=== PATIENT | male | born 1975 | race Caucasian/White ===

== ENCOUNTER 2018-08-19 19:24 | Inpatient (IN) | payer SELFPAY, OTHER, MEDICAID ==
[2018-08-19 20:27] LABS: HEMATOCRIT 44.1 % (42.0-52.0); HEMOGLOBIN 14.8 g/dl (13.5-17.5); MEAN CORPUSCULAR HEMOGLOBIN 30.8 pg (27.0-33.0); MEAN CORPUSCULAR HGB CONC 33.6 g/dl (32.0-36.5); MEAN CORPUSCULAR VOLUME 91.9 fl (80.0-96.0); PLATELET COUNT, AUTOMATED 206 10^3/uL (150-450); RED CELL DISTRIBUTION WIDTH 12.3 % (11.5-14.5); WHITE BLOOD COUNT 7.2 10^3/uL (4.0-10.0)
[2018-08-19 20:50] LABS: AMPHETAMINES LEVEL URINE NEGATIVE (NEGATIVE); BARBITURATES URINE NEGATIVE (NEGATIVE); BENZODIAZEPINES URINE NEGATIVE (NEGATIVE); CANNABINOIDS URINE POSITIVE (NEGATIVE); COCAINE METABOLITE URINE NEGATIVE (NEGATIVE); METHADONE URINE NEGATIVE (NEGATIVE); OPIATES URINE NEGATIVE (NEGATIVE); PHENCYCLIDINE URINE NEGATIVE (NEGATIVE)
[2018-08-19 21:00] LABS: ACETAMINOPHEN LEVEL < 2.0 UG/ML (10.0-30.0); ALBUMIN/GLOBULIN RATIO 1.25 (1.00-1.93); ALKALINE PHOSPHATASE 54 U/L (45-117); ALT/SGPT 23 U/L (12-78); ANION GAP 10 MEQ/L (8-16); AST/SGOT 15 U/L (7-37); BILIRUBIN,DIRECT 0.1 MG/DL (0.0-0.2); BILIRUBIN,TOTAL 0.4 MG/DL (0.2-1.0); BLOOD UREA NITROGEN 9 MG/DL (7-18); CALCIUM LEVEL 8.5 MG/DL (8.5-10.1); CARBON DIOXIDE LEVEL 26 MEQ/L (21-32); CHLORIDE LEVEL 108 MEQ/L (98-107); CREATININE FOR GFR 0.79 MG/DL (0.70-1.30); ETHYL ALCOHOL (ETHANOL) 0.065 % (0.000-0.010); GLOMERULAR FILTRATION RATE > 60.0 (>60); GLUCOSE, FASTING 81 MG/DL (70-100); POTASSIUM SERUM 3.3 MEQ/L (3.5-5.1); SALICYLATE LEVEL 3.1 MG/DL (5.0-30.0); SODIUM LEVEL 144 MEQ/L (136-145); TOTAL PROTEIN 7.2 GM/DL (6.4-8.2)
[2018-08-19] MEDS ORDERED: MAALOX 30 ML SUSP *UDC PO (22:00)
[2018-08-19] MEDS ORDERED: traZODone 50 MG TAB PO (22:00)
[2018-08-19] MEDS ORDERED: MOM 30ML SUSPENSION UDC PO (22:00)
[2018-08-19] MEDS: POTASSIUM CHLORIDE 10 MEQ SR TABLET PO (22:00)
[2018-08-20] MEDS: THIAMINE 100 MG TAB PO (11:42)
[2018-08-20] MEDS: MULTIVITAMINS/MINERALS THERAP 1 TAB PO (11:42)
[2018-08-20] MEDS: FOLIC ACID 1 MG TAB PO (11:42)
[2018-08-20] MEDS: SERTRALINE HCL 50 MG TAB PO (13:10)
[2018-08-20] MEDS: NICOTINE 21MG/24HR 1 EA TRANSDERMAL TD (13:10)
[2018-08-20] MEDS: ACETAMINOPHEN TAB 650MG DOSE (2X325MG) PO (20:49)
[2018-08-20] MEDS ORDERED: THIAMINE 100 MG TAB PO (21:00)
[2018-08-21] MEDS: THIAMINE 100 MG TAB PO (08:05)
[2018-08-21] MEDS: SERTRALINE HCL 50 MG TAB PO (08:05)
[2018-08-21] MEDS: FOLIC ACID 1 MG TAB PO (08:05)
[2018-08-21] MEDS: MULTIVITAMINS/MINERALS THERAP 1 TAB PO (08:05)
[2018-08-21] MEDS: NICOTINE 21MG/24HR 1 EA TRANSDERMAL TD (08:06)
[2018-08-21 08:52] LABS: ANION GAP 6 MEQ/L (8-16); BLOOD UREA NITROGEN 13 MG/DL (7-18); CALCIUM LEVEL 9.3 MG/DL (8.5-10.1); CARBON DIOXIDE LEVEL 31 MEQ/L (21-32); CHLORIDE LEVEL 106 MEQ/L (98-107); CREATININE FOR GFR 0.95 MG/DL (0.70-1.30); GLOMERULAR FILTRATION RATE > 60.0 (>60); GLUCOSE, FASTING 103 MG/DL (70-100); POTASSIUM SERUM 4.3 MEQ/L (3.5-5.1); SODIUM LEVEL 143 MEQ/L (136-145)
[2018-08-21] MEDS ORDERED: MULTIVITAMINS/MINERALS THERAP 1 TAB PO (09:00)
[2018-08-21] MEDS ORDERED: FOLIC ACID 1 MG TAB PO (09:00)
[2018-08-21] MEDS: hydrOXYzine 50 MG TAB PO (12:01)
[2018-08-21] MEDS: ONDANSETRON 4 MG ORAL DISINTEGRATING TAB (Q0162 PER 1MG) PO (12:02)
[2018-08-21] MEDS: LORazepam 2 MG TAB PO (12:53)
[2018-08-22] MEDS: FOLIC ACID 1 MG TAB PO (08:31)
[2018-08-22] MEDS: SERTRALINE HCL 50 MG TAB PO (08:31)
[2018-08-22] MEDS: NICOTINE 21MG/24HR 1 EA TRANSDERMAL TD (08:31)
[2018-08-22] MEDS: MULTIVITAMINS/MINERALS THERAP 1 TAB PO (08:31)
[2018-08-22] MEDS: THIAMINE 100 MG TAB PO (08:31)
[2018-08-22] MEDS: ACETAMINOPHEN TAB 650MG DOSE (2X325MG) PO (12:51)
[2018-08-22] MEDS: hydrOXYzine 50 MG TAB PO (14:49)
[2018-08-22] MEDS: LORazepam 2 MG TAB PO (17:01)
[2018-08-23] MEDS: MULTIVITAMINS/MINERALS THERAP 1 TAB PO (09:51)
[2018-08-23] MEDS: FOLIC ACID 1 MG TAB PO (09:51)
[2018-08-23] MEDS: THIAMINE 100 MG TAB PO (09:51)
[2018-08-23] MEDS: NICOTINE 21MG/24HR 1 EA TRANSDERMAL TD (09:51)
[2018-08-23] MEDS: SERTRALINE HCL 50 MG TAB PO (09:51)
[2018-08-23] MEDS: hydrOXYzine 50 MG TAB PO (11:50)
[2018-08-24] MEDS: FOLIC ACID 1 MG TAB PO (08:08)
[2018-08-24] MEDS: THIAMINE 100 MG TAB PO (08:08)
[2018-08-24] MEDS: SERTRALINE HCL 25 MG TABLET PO (08:08)
[2018-08-24] MEDS: MULTIVITAMINS/MINERALS THERAP 1 TAB PO (08:08)
[2018-08-24] MEDS: NICOTINE 21MG/24HR 1 EA TRANSDERMAL TD (08:09)
[2018-08-25] MEDS: NICOTINE 21MG/24HR 1 EA TRANSDERMAL TD (09:00)
[2018-08-25] MEDS: MULTIVITAMINS/MINERALS THERAP 1 TAB PO (09:05)
[2018-08-25] MEDS: THIAMINE 100 MG TAB PO (09:05)
[2018-08-25] MEDS: FOLIC ACID 1 MG TAB PO (09:05)
[2018-08-25] MEDS: SERTRALINE 100 MG TAB PO (09:05)
== END 2018-08-25 13:30 | disposition home or self-care (01) | DRG 754 ==
LOC: M PSY 08-21 13:53 → M ED 19:24 → M ED INP 21:54 → M PSY 22:43
DX: F32.9 Major depressive disorder, single episode, unspecified (principal); R45.851 Suicidal ideations; F41.1 Generalized anxiety disorder; F10.10 Alcohol abuse, uncomplicated; F11.10 Opioid abuse, uncomplicated; F17.210 Nicotine dependence, cigarettes, uncomplicated; E87.6 Hypokalemia

== ENCOUNTER 2018-12-24 13:35 | Inpatient (IN) | payer MEDICAID, OTHER, SELFPAY ==
[~2018-12-24] VITALS: Ht 185.4 cm; Wt 85.7 kg
[~2018-12-24 13:35] MED LIST: SERT-138 PO
[2018-12-24 15:02] LABS: HEMATOCRIT 45.3 % (42.0-52.0); HEMOGLOBIN 14.8 g/dl (13.5-17.5); MEAN CORPUSCULAR HEMOGLOBIN 30.6 pg (27.0-33.0); MEAN CORPUSCULAR HGB CONC 32.7 g/dl (32.0-36.5); MEAN CORPUSCULAR VOLUME 93.6 fl (80.0-96.0); PLATELET COUNT, AUTOMATED 205 10^3/uL (150-450); RED BLOOD COUNT 4.84 10^6/uL (4.30-6.10); WHITE BLOOD COUNT 6.6 10^3/uL (4.0-10.0)
[2018-12-24 15:30] LABS: ACETAMINOPHEN LEVEL < 2.0 UG/ML (10.0-30.0); ALT/SGPT 19 U/L (12-78); BILIRUBIN,DIRECT 0.2 MG/DL (0.0-0.2); BILIRUBIN,TOTAL 0.5 MG/DL (0.2-1.0); BLOOD UREA NITROGEN 11 MG/DL (7-18); CALCIUM LEVEL 8.3 MG/DL (8.5-10.1); CARBON DIOXIDE LEVEL 33 MEQ/L (21-32); CHLORIDE LEVEL 107 MEQ/L (98-107); CREATININE FOR GFR 0.85 MG/DL (0.70-1.30); ETHYL ALCOHOL (ETHANOL) 0.005 % (0.000-0.010); GLOMERULAR FILTRATION RATE > 60.0 (>60); GLUCOSE, FASTING 96 MG/DL (70-100); POTASSIUM SERUM 4.4 MEQ/L (3.5-5.1); SALICYLATE LEVEL 4.4 MG/DL (5.0-30.0); SODIUM LEVEL 141 MEQ/L (136-145); THYROID STIMULATING HORMONE 0.681 uIU/ML (0.358-3.740); TOTAL PROTEIN 6.8 GM/DL (6.4-8.2)
[2018-12-24 16:31] LABS: AMPHETAMINES LEVEL URINE NEGATIVE (NEGATIVE); BARBITURATES URINE NEGATIVE (NEGATIVE); BENZODIAZEPINES URINE NEGATIVE (NEGATIVE); CANNABINOIDS URINE POSITIVE (NEGATIVE); COCAINE METABOLITE URINE NEGATIVE (NEGATIVE); METHADONE URINE NEGATIVE (NEGATIVE); OPIATES URINE NEGATIVE (NEGATIVE); PHENCYCLIDINE URINE NEGATIVE (NEGATIVE)
[2018-12-24] MEDS ORDERED: LORazepam 2 MG TAB PO PRN (18:15)
[2018-12-24] MEDS ORDERED: MOM 30ML SUSPENSION UDC PO PRN (18:15)
[2018-12-24] MEDS ORDERED: IBUPROFEN 400 MG TAB PO PRN (18:15)
[2018-12-24] MEDS ORDERED: MAALOX 30 ML SUSP *UDC PO PRN (18:15)
[2018-12-24] MEDS ORDERED: traZODone 50 MG TAB PO PRN (18:15)
[2018-12-24] MEDS: THIAMINE 100 MG TAB PO SCH (19:24)
[2018-12-24 23:10] VITALS: BP 133/69
[2018-12-25 06:43] VITALS: BP 105/57
[2018-12-25 06:44] VITALS: BP 105/57
[2018-12-25] MEDS: THIAMINE 100 MG TAB PO SCH ×2 (09:00→21:00)
[2018-12-25] MEDS: MULTIVITAMINS/MINERALS THERAP 1 TAB PO SCH (09:00)
[2018-12-25] MEDS: FOLIC ACID 1 MG TAB PO SCH (09:00)
--- NOTE | 2018-12-25 13:42 | MHHPEPDOC ---
General Date Of Admission: Dec 24, 2018 Legal Status: 9.39 Chief Complaint "I'm having anxiety and depression." History of Present Illness HISTORY OF THE PRESENT ILLNESS: Patient is a 43 -year-old , male, with a history of depression, anxiety, substance abuse who [facility] SI who presented to ED endorsing depression and anxiety similar to symptoms he suffered last August and wanting to get help early before he started feeling suicidal and resorting to substance abuse. Per ED pt stated that he was having difficulties regarding his home life with his mother as the have a traumaltuous relationship, romantic difficulties with his partner, and work stressors. Pt stated that his stressors are causing his mood to fluctuate daily from depressed with avolition to angry and agitated. States he had been taking zoloft when last d/c [facility] but stopped it on his own as he felt it wasn't helping. Pt also failed to follow-up with his outpatient appointments at [facility] due to lack of transportation. Pt denied SI in the ED. He did endorse once become to angry last week he had homicidal thoughts toward his partner that scared him. He denied any HI since. He denied hallucinations and delusions in the ED. Did admit to drink a 12 to 18 beers daily and smoking marijuana. (U tox positive, bal .005) Psychiatric Review of Systems Depression (2 or more weeks): depressed mood, decreased energy, difficulty concentrating [place] (4 or more days of): denies Psychosis: denies Anxiety: situational anxiety, stressor related anxiety Anxiety/ 6 months or more of: restlessness, keyed up, difficulty concentrating, irritability Past Psychiatric History Previous Psychiatric Diagnosis: Major depressive disorder, social anxiety disorder, OCD, substance abuse Previous Psychiatric Admissions[facility] for [facility] Suicide Attempts: one suicide gesture that he stopped on his own b/c it scared him as a teen Psychiatric Follow-up: noncompliant at [facility] due to transportation difficulty Psychiatric medications: zoloft no benefit, side effects with Prozac and Paxil Past Medical History Medical Problems denies Head Injury: No Seizures: No Hospitalizations: Yes Surgeries: No Family Medical/Psychiatric HX Psychiatric Disorders: Yes (Mother and brother with depression. ) Addiction: No Addiction History nicotine (1ppd), alcohol (12-18 beers/daily), other (cannabis daily) Social History Early Relations/development:. Patient was raised by his grandmother and great aunt. Denies history of trauma or abuse. Education: Dropped out after eighth grade, had a record of IEP and special education. Occupational:. History of construction, currently warehouse packaging supervisor. Legal:. No history of legal concerns. Marital: twice. to his but Sexual Orientation: homosexual Episcopalian/Spirituality: Not indicated. Supports:. mother Abuse/trauma: Denied. Mental Status Examination General Appearance: well groomed, appears stated age, hospital scubs/clothing Build: average Demeanor: average, very figety Eye Contact: average Activity: average, anxious Behavior: cooperative, restless Speech: clear, spontaneous, normal volume, reg/rate,rhythm,volume Mood: depressed, anxious Mood "my mood goes from one day depressed to the next day angry" Affect: full, appropriate, congruent, anxious Thought Process: logical/linear, depressed, intact Thought Content (Delusions): none reported, denies SI, HI, AVH Thought Content (Other): none reported Thought Content (Aggressive): none reported Perception (Hallucinations): none reported Perception (Other): none reported Cognition (Impairment of): none reported Cognition(Intelligence Est.): average Oriented: Awake, Alert, Oriented times three Insight: fair Judgment: Fair Psychosis: Denies Diagnoses Generalized Anxiety d/o Depression unspecified Cannabis/Alcohol use d/o Hx of ocd and social anxiety d/o Hx of opiate use d/o Assessment Pt seen today and endorsing ongoing depression and anxiety, difficulties with anger for a while recently after he was [facility] for [facility] last 08/21. Pt states he hasn't been self medicating with drugs and alcohol as he wanted to get help before he resorted to using. Pt denies SI today but does state that twice he has become so angry he has wanted to hurt someone which scares him. Also endorses periods of avolition, poor energy, concentration, irritability. States he was taken zoloft from last admission but stopped it on his own as it felt it wasn't working. Agreeable to trying effexor xr for mood and anxiety after discussed risks benefits with pt. Will provide vistaril 50mg q6hr prn anxiety. Pt denies SI/HI, hallucinations, delusions. Feels safe here. Initial Treatment Plan 1. Patient was admitted on a [9.39] status. 2. Complete history was obtained. 3. With patients permission, family will be contacted and database will be expanded. 4. Patients medication regimen will be reviewed and changed accordingly. 5. Patient will be provided with protected environment. 6. Patient will be treated with individual, group, and milieu therapies. 7. Patient will receive supportive psych-education. 8. Discharge planning will commence immediately. 9. Outpatient follow-up treatment will be strongly recommended. 10. The initial treatment plan will focus initially on: * Depression. * Risk for suicide. * Substance abuse. ESTIMATED LENGTH OF STAY: - DAYS. TIME SPENT COUNSELING AND COORDINATING INITIAL CARE: minutes. Vital Signs Vital Signs Date Time Temp Pulse Resp B/P (MAP) Pulse Ox O2 Delivery O2 Flow Rate FiO2 12/25/18 06:44 98.8 58 12 105/57 (73) 12/24/18 22:27 99 Room Air Laboratory Data 24H Labs Laboratory Tests 2 12/24/18 14:39: Nucleated Red Blood Cells % (auto) 0.0, Anion Gap 1L, Glomerular Filtration Rate > 60.0, Calcium Level 8.3L, Aspartate Amino Transf (AST/SGOT) 14, Alanine Aminotransferase (ALT/SGPT) 19, Alkaline Phosphatase 48, Total Bilirubin 0.5, Direct Bilirubin 0.2, Total Protein 6.8, Albumin 4.0, Albumin/Globulin Ratio 1.43, Thyroid Stimulating Hormone (TSH) 0.681, Salicylates Level 4.4L, Urine Amphetamines Screen NEGATIVE, Urine Benzodiazepines Screen NEGATIVE, Urine Opiates Screen NEGATIVE, Urine Methadone Screen NEGATIVE, Acetaminophen Level < 2.0L, Urine Barbiturates Screen NEGATIVE, Urine Phencyclidine Screen NEGATIVE, Urine Cocaine Metabolite Screen NEGATIVE, Urine Cannabinoids Screen POSITIVEH, Ethyl Alcohol Level 0.005 CBC/BMP Laboratory Tests 12/24/18 14:39 Red Blood Count 4.84, Mean Corpuscular Volume 93.6, Mean Corpuscular Hemoglobin 30.6, Mean Corpuscular Hemoglobin Concent 32.7, Red Cell Distribution Width 12.1 Medications No Active Prescriptions or Reported Meds Allergies Coded Allergies: No Known Allergies (Unverified , 06/13/18) HAWK DIAZ DO Dec 25, 2018 1:22 pm
[2018-12-25] MEDS ORDERED: traZODone 25MG PER 1/2 TABLET PO PRN (13:45)
[2018-12-25] MEDS ORDERED: VENLAFAXINE **XR** 75MG CAPSULE PO ONE (14:00)
[2018-12-25 14:30] VITALS: BP 110/64
[2018-12-25] MEDS: NICOTINE 21MG/24HR 1 EA TRANSDERMAL TD SCH (15:40)
[2018-12-25 18:00] VITALS: BP 118/75
[2018-12-26 06:49] VITALS: BP 112/60
[2018-12-26] MEDS: FOLIC ACID 1 MG TAB PO SCH (08:58)
[2018-12-26] MEDS: THIAMINE 100 MG TAB PO SCH ×2 (08:59→21:00)
[2018-12-26] MEDS: MULTIVITAMINS/MINERALS THERAP 1 TAB PO SCH (08:59)
[2018-12-26] MEDS: VENLAFAXINE **XR** 75MG CAPSULE PO SCH (09:00)
[2018-12-26] MEDS: NICOTINE 21MG/24HR 1 EA TRANSDERMAL TD SCH (09:00)
--- NOTE | 2018-12-26 09:24 | MHIPNPDOC ---
[facility] Progress Note Progress Note DATE OF SERVICE: 12/26/18 HISTORY: Patient is a 43 -year-old , male, with a history of depression, anxiety, substance abuse who was admitted to [facility] in 08/2018 for SI who presented to ED endorsing depression and anxiety similar to symptoms he suffered last August and wanting to get help early before he started feeling suicidal and resorting to substance abuse. Per ED pt stated that he was having difficulties regarding his home life with his mother as the have a traumaltuous relationship, romantic difficulties with his partner, and work stressors. Pt s tated that his stressors are causing his mood to fluctuate daily from depressed with avolition to angry and agitated. States he had been taking zoloft when last d/c [facility] but stopped it on his own as he felt it wasn't helping. Pt also failed to follow-up with his outpatient appointments at [facility] due to lack of transportation. Pt denied SI in the ED. He did endorse once become to angry last week he had homicidal thoughts toward his partner that scared him. He denied any HI since. He denied hallucinations and delusions in the ED. Did admit to drink a 12 to 18 beers daily and smoking marijuana. (U tox positive, bal .005) VITAL SIGNS: See below. NEW TEST RESULTS: See below. CURRENT MEDICATIONS: See below. MENTAL STATUS EXAMINATION: General Appearance: well groomed, appears stated age, hospital scrubs/clothing Build: average Demeanor: average, very fidgety Eye Contact: average Activity: average, less anxious Behavior: cooperative, no longer restless Speech: clear, spontaneous, normal volume, reg/rate,rhythm,volume Mood: depressed, less anxious Mood "better" Affect: full, appropriate, congruent, less anxious Thought Process: logical/linear, depressed, intact Thought Content (Delusions): none reported, denies SI, HI, AVH Thought Content (Other): none reported Thought Content (Aggressive): none reported Perception (Hallucinations): none reported Perception (Other): none reported Cognition (Impairment of): none reported Cognition(Intelligence Est.): average Oriented: Awake, Alert, Oriented times three Insight: fair Judgment: Fair Psychosis: Denies DIAGNOSES: Generalized Anxiety d/o Depression unspecified Cannabis/Alcohol use d/o Hx of ocd and social anxiety d/o Hx of opiate use d/o ASSESSMENT:Pt seen today and states he's feeling better and more calm with the start of effexor xr that he's tolerating well. States he slept well last night and is tolerating lower dose of trazodone with denial of day time fatigue. He is attending groups and finding them helpful. Pt denies SI/HI, hallucinations, delusions. Feels safe here. MANAGEMENT PLAN: continue plan. effexor xr 75mg daily trazodone 25mg q6hr prn insomnia TIME SPENT: 30 minutes. Vital Signs Vital Signs Date Time Temp Pulse Resp B/P (MAP) Pulse Ox O2 Delivery O2 Flow Rate FiO2 12/26/18 06:49 98.2 62 16 112/60 (77) 12/24/18 22:27 99 Room Air Current Medications Current Medications Al Hydrox/Mg Hydrox/Simethicone (Mylanta) 30 ml Q4HP PRN PO HEARTBURN/INDIGESTION; Start 12/24/18 at 18:15 Folic Acid (Folic Acid) 1 mg DAILY PO ; Start 12/25/18 at 09:00 Home Med (Med Rec Complete!) ASDIRECTED XX ; Start 12/24/18 at 18:00; Stop 12/24/18 at 18:00; Status DC Hydroxyzine HCl (Atarax) 50 mg Q6HP PRN PO ANXIETY/AGITATION; Start 12/25/18 at 13:45 Ibuprofen (Advil) 400 mg Q6HP PRN PO PAIN; Start 12/24/18 at 18:15 Lorazepam (Ativan) 2 mg ASDIRECTED PRN PO SEE PROTOCOL; Start 12/24/18 at 18:15 Magnesium Hydroxide (Milk Of Magnesia) 30 ml DAILYPRN PRN PO CONSTIPATION; Start 12/24/18 at 18:15 Multivitamins (Theragram-M) 1 tab DAILY PO ; Start 12/25/18 at 09:00 Nicotine (Nicoderm Cq 21mg) 1 patch DAILY TD Last administered on 12/26/18at 09:00; Start 12/25/18 at 15:00 Thiamine HCl (Thiamine HCl) 100 mg BID PO Last administered on 12/24/18at 19:24; Start 12/24/18 at 18:30; Stop 12/27/18 at 09:01 Trazodone HCl (Desyrel) 25 mg QHSP PRN PO INSOMNIA; Start 12/25/18 at 13:45 Trazodone HCl (Desyrel) 50 mg QHSP PRN PO INSOMNIA; Start 12/24/18 at 18:15; Status Cancel Venlafaxine HCl (Effexor Xr) 75 mg DAILY PO Last administered on 12/26/18at 09:00; Start 12/26/18 at 09:00 Allergies Coded Allergies: No Known Allergies (Unverified , 06/13/18) HAWK DIAZ DO Dec 26, 2018 9:17 am
[2018-12-26 11:33] VITALS: BP 130/76
[2018-12-26] MEDS: hydrOXYzine 50 MG TAB PO PRN (17:10)
[2018-12-26 18:00] VITALS: BP 120/68
[2018-12-26] MEDS ORDERED: LORazepam 2 MG TAB PO PRN (21:45)
[2018-12-27 06:41] VITALS: BP 100/59
[2018-12-27] MEDS: VENLAFAXINE **XR** 75MG CAPSULE PO SCH (08:13)
[2018-12-27] MEDS: NICOTINE 21MG/24HR 1 EA TRANSDERMAL TD SCH (08:13)
[2018-12-27] MEDS: THIAMINE 100 MG TAB PO SCH ×2 (08:14→21:00)
[2018-12-27] MEDS: FOLIC ACID 1 MG TAB PO SCH (08:14)
[2018-12-27] MEDS: MULTIVITAMINS/MINERALS THERAP 1 TAB PO SCH (08:14)
[2018-12-27 09:42] VITALS: BP 115/78
--- NOTE | 2018-12-27 09:42 | MHIPNPDOC ---
[facility] Progress Note Progress Note DATE OF SERVICE: 12/27/18 HISTORY: Patient is a 43 -year-old , male, with a history of depression, anxiety, substance abuse who was admitted to [facility] in 08/2018 for SI who presented to ED endorsing depression and anxiety similar to symptoms he suffered last August and wanting to get help early before he started feeling suicidal and resorting to substance abuse. Per ED pt stated that he was having difficulties regarding his home life with his mother as the have a traumaltuous relationship, romantic difficulties with his partner, and work stressors. Pt s tated that his stressors are causing his mood to fluctuate daily from depressed with avolition to angry and agitated. States he had been taking zoloft when last d/c [facility] but stopped it on his own as he felt it wasn't helping. Pt also failed to follow-up with his outpatient appointments at [facility] due to lack of transportation. Pt denied SI in the ED. He did endorse once become to angry last week he had homicidal thoughts toward his partner that scared him. He denied any HI since. He denied hallucinations and delusions in the ED. Did admit to drink a 12 to 18 beers daily and smoking marijuana. (U tox positive, bal .005) VITAL SIGNS: See below. NEW TEST RESULTS: See below. CURRENT MEDICATIONS: See below. MENTAL STATUS EXAMINATION: General Appearance: well groomed, appears stated age, hospital scrubs/clothing Build: average Demeanor: average, fidgety Eye Contact: average Activity: average, less anxious Behavior: cooperative, no longer restless Speech: clear, spontaneous, normal volume, reg/rate,rhythm,volume Mood: depressed, less anxious Mood "ok" Affect: full, appropriate, congruent, less anxious Thought Process: logical/linear, depressed, intact Thought Content (Delusions): none reported, denies SI, HI, AVH Thought Content (Other): none reported Thought Content (Aggressive): none reported Perception (Hallucinations): none reported Perception (Other): none reported Cognition (Impairment of): none reported Cognition(Intelligence Est.): average Oriented: Awake, Alert, Oriented times three Insight: fair Judgment: Fair Psychosis: Denies DIAGNOSES: Generalized Anxiety d/o Depression unspecified Cannabis/Alcohol use d/o Hx of ocd and social anxiety d/o Hx of opiate use d/o ASSESSMENT:Pt seen today and states he's feeling "ok" and feels he's tolerating his effexor xr and it's very beneficial. States he talked to his mother and is able to return to her home which his happy about as he won't be homeless. States he's looking forward to returning to work soon. States he slept well last night and is tolerating lower dose of trazodone with denial of day time fatigue. He is attending groups and finding them helpful. Pt denies SI/HI, hallucinations, delusions. Feels safe here. MANAGEMENT PLAN: continue plan. effexor xr 75mg daily trazodone 25mg q6hr prn insomnia TIME SPENT: 30 minutes. Vital Signs Vital Signs Date Time Temp Pulse Resp B/P (MAP) Pulse Ox O2 Delivery O2 Flow Rate FiO2 12/27/18 06:41 99.2 70 16 100/59 (73) 12/24/18 22:27 99 Room Air Current Medications Current Medications Al Hydrox/Mg Hydrox/Simethicone (Mylanta) 30 ml Q4HP PRN PO HEA RTBURN/INDIGESTION; Start 12/24/18 at 18:15 Folic Acid (Folic Acid) 1 mg DAILY PO ; Start 12/25/18 at 09:00; Stop 12/26/18 at 11:36; Status DC Folic Acid (Folic Acid) 1 mg DAILY PO ; Start 12/27/18 at 09:00 Home Med (Med Rec Complete!) ASDIRECTED XX ; Start 12/24/18 at 18:00; Stop 12/24/18 at 18:00; Status DC Hydroxyzine HCl (Atarax) 50 mg Q6HP PRN PO ANXIETY/AGITATION Last administered on 12/26/18at 17:10; Start 12/25/18 at 13:45 Ibuprofen (Advil) 400 mg Q6HP PRN PO PAIN; Start 12/24/18 at 18:15 Lorazepam (Ativan) 2 mg ASDIRECTED PRN PO SEE PROTOCOL; Start 12/24/18 at 18:15; Status Cancel Lorazepam (Ativan) 2 mg ASDIRECTED PRN PO SEE PROTOCOL; Start 12/26/18 at 21:45 Magnesium Hydroxide (Milk Of Magnesia) 30 ml DAILYPRN PRN PO CONSTIPATION; Start 12/24/18 at 18:15 Multivitamins (Theragram-M) 1 tab DAILY PO ; Start 12/25/18 at 09:00; Stop 12/26/18 at 11:36; Status DC Multivitamins (Theragram-M) 1 tab DAILY PO ; Start 12/27/18 at 09:00 Nicotine (Nicoderm Cq 21mg) 1 patch DAILY TD Last administered on 12/27/18at 08:13; Start 12/25/18 at 15:00 Thiamine HCl (Thiamine HCl) 100 mg BID PO Last administered on 12/24/18at 19:24; Start 12/24/18 at 18:30; Stop 12/26/18 at 11:36; Status DC Thiamine HCl (Thiamine HCl) 100 mg BID PO ; Start 12/26/18 at 21:00; Stop 12/29/18 at 09:01 Trazodone HCl (Desyrel) 25 mg QHSP PRN PO INSOMNIA; Start 12/25/18 at 13:45 Trazodone HCl (Desyrel) 50 mg QHSP PRN PO INSOMNIA; Start 12/24/18 at 18:15; Status Cancel Venlafaxine HCl (Effexor Xr) 75 mg DAILY PO Last administered on 12/27/18at 08:13; Start 12/26/18 at 09:00 Allergies Coded Allergies: No Known Allergies (Unverified , 06/13/18) HAWK DIAZ DO Dec 27, 2018 9:42 am
[2018-12-27] MEDS: hydrOXYzine 50 MG TAB PO PRN (12:10)
[2018-12-27 18:40] VITALS: BP 115/66
[2018-12-27 20:26] VITALS: BP 115/66
[2018-12-28 06:12] VITALS: BP 103/55
[2018-12-28] MEDS: FOLIC ACID 1 MG TAB PO SCH (08:05)
[2018-12-28] MEDS: THIAMINE 100 MG TAB PO SCH ×2 (08:05→20:48)
[2018-12-28] MEDS: MULTIVITAMINS/MINERALS THERAP 1 TAB PO SCH (08:05)
[2018-12-28] MEDS: NICOTINE 21MG/24HR 1 EA TRANSDERMAL TD SCH (08:06)
[2018-12-28] MEDS: VENLAFAXINE **XR** 75MG CAPSULE PO SCH (08:06)
[2018-12-28 10:16] VITALS: BP 118/68
[2018-12-28] MEDS: hydrOXYzine 50 MG TAB PO PRN (17:20)
[2018-12-28 18:00] VITALS: BP 131/77
[2018-12-28 20:27] VITALS: BP 133/85
[2018-12-29 06:52] VITALS: BP 115/58
[2018-12-29] MEDS: FOLIC ACID 1 MG TAB PO SCH (08:11)
[2018-12-29] MEDS: MULTIVITAMINS/MINERALS THERAP 1 TAB PO SCH (08:11)
[2018-12-29] MEDS: VENLAFAXINE **XR** 75MG CAPSULE PO SCH (08:11)
[2018-12-29] MEDS: NICOTINE 21MG/24HR 1 EA TRANSDERMAL TD SCH (08:12)
[2018-12-29] MEDS: THIAMINE 100 MG TAB PO SCH (08:12)
--- NOTE | 2018-12-29 08:26 | HPE ---
DATE OF ADMISSION: 12/24/2018 HISTORY OF PRESENT ILLNESS (HPI): Please refer to the psychiatric history and evaluation for further details on this admission. This examination and history is intended for medical issues, which may need treatment, followup or consult on this 43-year-old male. ALLERGIES: No known allergies. SOCIAL HISTORY: He is single. He smokes one pack of cigarettes per day. He drinks at least 6-12 drinks every day and has all his life per patient. He has a history in the past of Vicodin abuse, Percocet abuse, Xanax, oxycodone, Suboxone off the street abuse. He still uses, drinks, smokes marijuana frequently, and occasionally uses cocaine. FAMILY HISTORY: Mother alive, health unknown. Father from alcohol use and cirrhosis. PAST MEDICAL HISTORY: 1. Anxiety/depression. 2. Obsessive compulsive disorder (OCD). 3. Alcohol abuse. 4. Substance use. PAST SURGICAL HISTORY: Negative. HOME MEDICATIONS: None. LABORATORY STUDIES: CBC was normal. Sodium 141, potassium 4.4, chloride 107, CO2 33, BUN 11, creatinine 0.84, calcium 8.3. EtOH was 0.005. Urine was positive for cannabinoids. 10-systems review was done and unremarkable. PHYSICAL EXAM: 43-year-old, cooperative male, in no acute distress. Height 73 inches. Weight 86 kg. Body mass index (BMI) 25. Blood pressure 120/68. Pulse 77. Respirations 16. Temperature 98.1. Patient is alert and oriented times three. Pupils equal and reactive to light. Extraocular movements (EOMS) intact. Cornea and sclerae clear. Conjunctiva is normal. No facial asymmetry. Pharynx, tongue and gums pink and moist. Tongue is midline. Neck is supple, without lymphadenopathy. No thyromegaly. No goiter. Carotids 2+ without bruits. Chest clear to auscultation, without wheeze or retraction. Heart is regular. Abdomen benign. Bowel sounds positive. Genitourinary ()/rectal not done. Extremities show equal strength, full range of motion. No cyanosis, clubbing, or edema. Peripheral pulse equal and palpable bilaterally. Skin is warm and dry. IMPRESSION/PLAN: Psychiatric. Plan per psychiatry. Clinical [facility] Withdrawal Assessment (CIWA) protocol to monitor for alcohol withdrawal. EKG on 08/21/2018 showed sinus bradycardia. Early anterior R wave progression. No significant change when compared to 12/14/2013.
--- NOTE | 2018-12-29 08:51 | MHDSPDOC ---
[facility] Discharge Summary Discharge Summary DATE OF ADMISSION: Dec 24, 2018 at 6:06 pm DATE OF DISCHARGE: Dec 29, 2018 DISCHARGE DIAGNOSES: Generalized Anxiety d/o Depression unspecified Cannabis/Alcohol use d/o Hx of ocd and social anxiety d/o Hx of opiate use d/o REASON FOR ADMISSION: Patient is a 43 -year-old , male, with a history of depression, anxiety, substance abuse who was admitted to [facility] in 08/2018 for SI who presented to ED endorsing depression and anxiety similar to symptoms he suffered last August and wanting to get help early before he started feeling suicidal and resorting to substance abuse. Per ED pt stated that he was having difficulties regarding his home life with his mother as the have a traumaltuous relationship, romantic difficulties with his partner, and work stressors. Pt stated that his stressors are causing his mood to fluctuate daily from depressed with avolition to angry and agitated. States he had been taking zoloft when last d/c [facility] but stopped it on his own as he felt it wasn't helping. Pt also failed to follow-up with his outpatient appointments at [facility] due to lack of transportation. Pt denied SI in the ED. He did endorse once become to angry last week he had homicidal thoughts toward his partner that scared him. He denied any HI since. He denied hallucinations and delusions in the ED. Did admit to drink a 12 to 18 beers daily and smoking marijuana. (U tox positive, bal .005) CONSULTANTS INVOLVED: none TREATMENT AND PROGRESS ON THE UNIT : Pt was admitted to [facility], seen for psychiatric assessment and started on effexor xr 75mg daily. He was provided vistaril 50mg q6hr prn anxiety and trazodone 50mg qhs prn insomnia. Pt found his medications beneficial and tolerated them well. He denied alcohol or substance withdrawal symptoms during his stay but was monitored [facility] protocol although did not require ativian for alcohol withdrawal during his stay. He attended groups daily during his stay. His symptoms improved with treatment. On day of discharge he denied depression, anxiety, insomnia, SI/HI, hallucinations, delusions, substance withdrawal symptoms. He was discharged home after family meeting with his mother with follow-up at [facility] substance abuse treatment program.. He felt safe for discharge. DISCHARGE ASSESSMENT: Pt seen today and states he's feeling "good" and feels he's tolerating his effexor xr and it's very beneficial. States he's looking forward to going home today. His affect is euthymic, bright, and calm. His anxiety is greatly improved. States he's looking forward to returning to work s oon and home with his mother who is supportive of him. States he slept well last night and is finding trazodone beneficial. He is attending groups and finding them helpful. Pt denies depression, anxiety, insomnia, SI/HI, hallucinations, delusions. Feels safe to be discharged home. MENTAL STATUS EXAMINATION ON DISCHARGE: General Appearance: well groomed, appears stated age, own clothing Build: average Demeanor: average, calm Eye Contact: average Activity: average, calm Behavior: cooperative, no longer restless Speech: clear, spontaneous, normal volume, reg/rate,rhythm,volume Mood: euthymic, full, bright Mood "good" Affect: full, appropriate, congruent Thought Process: logical/linear, intact Thought Content (Delusions): none reported, denies SI, HI, AVH Thought Content (Other): none reported Thought Content (Aggressive): none reported Perception (Hallucinations): none reported Perception (Other): none reported Cognition (Impairment of): none reported Cognition(Intelligence Est.): average Oriented: Awake, Alert, Oriented times three Insight: good Judgment: good Psychosis: Denies MEDICATIONS ON DISCHARGE: effexor xr 75mg daily trazodone 25mg q6hr prn insomnia vistaril 50mg q6hr prn anxiety PLAN/FOLLOWUP ARRANGEMENTS: D/c home with follow-up at [facility] substance abuse treatment program. The amount of time spent in the coordination of care for this patient was approximately 30 minutes. Vital Signs/I&Os Vital Signs Date Time Temp Pulse Resp B/P (MAP) Pulse Ox O2 Delivery O2 Flow Rate FiO2 12/29/18 06:52 99.3 85 20 115/58 (77) 12/24/18 22:27 99 Room Air Medications Scheduled Venlafaxine HCl (Venlafaxine HCl ER) 75 Mg Capcr, 75 MG PO DAILY for mood, #10 Scheduled PRN Hydroxyzine HCl (Hydroxyzine HCl) 50 Mg Tab, 50 MG PO Q6HP PRN for ANXIETY/AG ITATION, #30 Trazodone HCl (Trazodone HCl) 50 Mg Tab, 25 MG PO QHSP PRN for INSOMNIA, #10 Allergies Coded Allergies: No Known Allergies (Unverified , 06/13/18) HAWK DIAZ DO Dec 29, 2018 8:51 am
[2018-12-29] MEDS ORDERED: VENL75CA47 PO (08:54)
[2018-12-29] MEDS ORDERED: TRAZ25TA PO (08:54)
[2018-12-29] MEDS ORDERED: HYDRO50TAB PO (08:54)
== END 2018-12-29 10:05 | disposition home or self-care (01) | DRG 756 ==
LOC: M ED 13:35 → M ED INP 18:06 → M PSY 23:03
PROVIDERS: ADMIT Psychiatry & Neurology Psychiatry; ATTEND Psychiatry & Neurology Psychiatry
DX: F41.1 Generalized anxiety disorder (principal); R45.851 Suicidal ideations; F32.9 Major depressive disorder, single episode, unspecified; F10.10 Alcohol abuse, uncomplicated; F12.90 Cannabis use, unspecified, uncomplicated; F11.10 Opioid abuse, uncomplicated; F42.9 Obsessive-compulsive disorder, unspecified; G47.00 Insomnia, unspecified; F17.210 Nicotine dependence, cigarettes, uncomplicated

== ENCOUNTER → 2024-05-26 | Outpatient (REF) | payer MEDICAID, OTHER, SELFPAY ==
[~2024-05-26] MED LIST changes: +HYDR1TAB33 PO; +TRAZ1TAB11 PO; +VENL75CA47 PO
[2024-05-26 12:44] LABS: INR 0.97; PARTIAL THROMBOPLASTIN TIME 27.2 SECONDS (24.8-34.2); PROTHROMBIN TIME 12.6 SECONDS (12.5-14.5)
[2024-05-26 18:08] LABS: ALBUMIN 4.4 G/DL (3.2-5.2); ALKALINE PHOSPHATASE 66 U/L (46-116); ALT/SGPT 29 U/L (7.0-40); AST/SGOT 13 U/L (<34); BILIRUBIN,TOTAL 0.8 MG/DL (0.3-1.2); BLOOD UREA NITROGEN 12 MG/DL (9-23); CALCIUM LEVEL 9.4 MG/DL (8.5-10.1); CARBON DIOXIDE LEVEL 24 MMOL/L (20-31); CHLORIDE LEVEL 106 MMOL/L (98-107); CHOLESTEROL LEVEL 169 MG/DL (<200); CHOLESTEROL RISK RATIO 2.43 (<5); CREATININE FOR GFR 0.88 MG/DL (0.70-1.30); GLOMERULAR FILTRATION RATE > 60.0 (>60); GLUCOSE, FASTING 86 MG/DL (60-100); HDL CHOLESTEROL 69.4 MG/DL (>40); LDL CHOLESTEROL 69.2 MG/DL (<100); NON-HDL-C 99.6 MG/DL; POTASSIUM SERUM 4.3 MMOL/L (3.5-5.1); SODIUM LEVEL 138 MMOL/L (136-145); THYROID STIMULATING HORMONE 2.341 uIU/ML (0.55-4.78); TOTAL 25(OH) VITAMIN D 9.3 NG/ML (20.0-100.0); TOTAL PROTEIN 7.3 G/DL (5.7-8.2); TRIGLYCERIDES LEVEL 152 MG/DL (<150)
[2024-05-26 18:09] LABS: VITAMIN B12 LEVEL 227 PG/ML (211-911)
[2024-05-26 18:48] LABS: FOLATE > 24.0 NG/ML (>5.4)
== END ==
LOC: M LAB REF 12:19
PROVIDERS: ATTEND Physician Assistant
DX: F10.10 Alcohol abuse, uncomplicated (principal); E66.9 Obesity, unspecified; E55.9 Vitamin D deficiency, unspecified

== ENCOUNTER → 2025-02-01 | Outpatient (CLI) | payer OTHER | LOC: M RAD 10:06 | PROVIDERS: ATTEND Physician Assistant | DX: M25.512 Pain in left shoulder (principal) ==